=== PATIENT | male | born 1970 | race Caucasian/White ===

== ENCOUNTER 2016-05-19 21:15 | Emergency (ER) | payer OTHER ==
--- NOTE | 2016-05-19 21:26 | PDOC ---
History of Present Illness - History of Present Illness Initial Comments: 05/19/16 21:53 The patient is a 46 year old male with a PMHx of HTN, SD, 3 kidney transplants, anemia, anxiety, depression who presents to the ED sent by PCP for a potassium of 7.1. The patient got lab done today, and PCP called him with results and told him to go to the ED. He has no current symptoms. He denies chest pain, SOB , palpitations. He denies fever, chills, nausea, vomiting. He has a colostomy and urostomy bag. He denies tobacco, alcohol, drug use. PAST MEDICAL HISTORY: HTN, SD, 3 kidney transplants, anemia, anxiety, depression PAST SURGICAL HISTORY: colostomy, urostomy FAMILY HISTORY: no pertinent history SOCIAL HISTORY: Pt lives with family and is employed. MEDICATIONS: reviewed ALLERGIES: As per nursing notes Review of Systems: General: No fevers or chills, no weakness, no weight loss HEENT: No change in vision. No sore throat,. No ear pain CardioVascular: No chest pain or shortness of breath Respiratory: No cough, or wheezing. Gastrointestinal: no nausea, vomiting, diarrhea or constipation, No rectal bleeding Genitourinary: No dysuria, hematuria, or frequency Musculoskeletal: No joint or muscle pain or swelling Neurologic: No headache, vertigo, dizziness or loss of consciousness Psychiatric: No depression Skin: No rashes or easy bruising Endocrine: No increased thirst or abnormal weight change Allergic: No skin or latex allergy All other systems reviewed and normal Physical Exam: General: Well-nourished well-developed individual, no acute distress HEENT: Throat: Normal, tonsils normal, no erythema or exudate Neck: Supple, no meningeal signs, no lymphadenopathy Eyes: Pupils equal reactive and round, extraocular motion intact Chest: Nontender to palpation Cardiac: S1-S2 normal, regular rate and rhythm, no murmurs rubs or gallops Respiratory: Lungs clear to auscultation bilateral Abdomen: Multiple surgical scars with diverting colostomy and urostomy bags. Soft, nondistended, normal bowel sounds, nontender to palpation diffusely Extremities: Warm, dry, no cyanosis, clubbing, or edema Skin: No rashes Neuro: Alert and oriented x3, nonfocal exam, grossly intact, normal gait Psych: Normal mood and affect <Charmaine Mason A - Last Filed: 05/19/16 21:53> - General History Source: Patient Exam Limitations: No Limitations - History of Present Illness Initial Comments: 05/19/16 22:23 A portion of this note was documented by scribe services under my direction. I have reviewed the details of the note, within reason, and agree with the documentation. The case summary and management plan written by me. Assessment and plan: This is a 46-year-old male who comes in complaining of his doctor called him and told him to go to the ER to have his room potassium checked as he had had it done earlier in the day and he came back 7.5. Repeat potassium here in the emergency room was 5.7. EKG was done which is unchanged from prior and shows no changes suggestive of hyperkalemia. Patient is otherwise without complaints. Patient's primary care DrJavi regalado was called and discussed findings with him. He recommends that the patient takes some sodium bicarbonate 1300 mg a day as he is a little acidotic. Patient will follow-up with his doctor in the morning. <Evelia Roblero I - Last Filed: 05/19/16 22:25> - General Stated Complaint: HYPERKALEMIA Time Seen by Provider: 05/19/16 21:25 Past History <Charmaine Mason - Last Filed: 05/19/16 21:53> - Past Medical History Anemia: Yes Cardiac Disorders: Yes (2013) Dialysis: Yes (S/P KIDNEY TRANSPLANT) HTN: Yes Psychiatric Problems: Yes (DEPRESSION, ANXIETY) - Surgical History Abdominal Surgery: Yes (COLOSTOMY) - Immunization History Td Vaccination: No - Psycho/Social/Smoking Cessation Hx Anxiety: Yes Suicidal Ideation: No Smoking Status: No Smoking History: Never smoked Number of Cigarettes Smoked Daily: 0 Hx Alcohol Use: No Drug/Substance Use Hx: No <Evelia Roblero I - Last Filed: 05/19/16 22:25> - Past Medical History Allergies/Adverse Reactions: Allergies Allergy/AdvReac Type Severity Reaction Status Date / Time No Known Allergies Allergy Verified 12/08/14 08:42 Home Medications: Ambulatory Orders Atorvastatin Ca [Lipitor -] 40 mg PO HS 12/08/14 Azathioprine [Azasan] 100 mg PO DAILY 12/08/14 Clopidogrel Bisulfate [Clopidogrel] 75 mg PO DAILY 12/08/14 Prednisone 5 mg PO DAILY 12/08/14 Carvedilol [Coreg] 25 mg PO BID 05/19/16 Escitalopram Oxalate [Lexapro -] 20 mg PO DAILY 05/19/16 Hydralazine HCl [Apresoline -] 25 mg PO BID 05/19/16 *Physical Exam - Vital Signs Last Vital Signs Temp Pulse Resp BP Pulse Ox 97.9 F 57 L 16 151/90 96 05/19/16 21:39 05/19/16 21:39 05/19/16 21:39 05/19/16 21:39 05/19/16 21:39 <Charmaine Mason - Last Filed: 05/19/16 21:53> ED Treatment Course - LABORATORY CBC & Chemistry Diagram: 05/19/16 21:15 05/19/16 21:15 - ADDITIONAL ORDERS Additional order review: 05/19/16 21:15 RBC 3.99 L MCV 98.5 H MCHC 33.3 RDW 18.2 H D MPV 8.4 Neutrophils % 76.2 Lymphocytes % 17.1 Monocytes % 5.3 Eosinophils % 1.0 Basophils % 0.4 <Charmaine Mason - Last Filed: 05/19/16 21:53> - LABORATORY CBC & Chemistry Diagram: 05/19/16 21:15 05/19/16 21:15 <Evelia Roblero I - Last Filed: 05/19/16 22:25> *DC/Admit/Observation/Transfer - Attestations Scribe Attestion: 05/19/16 21:53 Documentation prepared by Charmaine Mason, acting as certified ophthalmic medical technician for Evelia Roblero MD. <Charmaine Mason - Last Filed: 05/19/16 21:53> - Discharge Dispostion Admit: No <Evelia Roblero I - Last Filed: 05/19/16 22:25> Diagnosis at time of Disposition: Hyperkalemia - Discharge Dispostion Disposition: HOME Condition at time of disposition: Stable - Referrals Referrals: STAFF,NOT ON [Primary Care Provider] - - Patient Instructions Additional Instructions: Purchase some [id number]-mptssmy Tums and take 1300 mg a day. Call your doctor in the morning and discuss with him any additional measures that he may want you to take. Return to the emergency department immediately with ANY new, persistent or worsening symptoms. Continue any medications as previously prescribed by your physician. You should follow up with your primary doctor as soon as possible regarding today's emergency department visit. . Please make sure your doctor reviews the results of your emergency evaluation. Thank you for coming to the Emergency Department today for your care. It was a pleasure to see you today. Please note that your evaluation is INCOMPLETE until you follow-up with your doctor.
[2016-05-19 21:43] VITALS: BP 151/90; PULSE 57; TEMP 97.9; BMI 19.5
[2016-05-19 21:48] LABS: BASOPHIL 0.4 % (0-2.0); MCH 32.8 pg (25.7-33.7); MCHC 33.3 g/dl (32.0-35.9); MEAN CELL VOLUME 98.5 fl (80-96); MEAN PLT VOLUME 8.4 fl (7.5-11.1); NEUTROPHILS 76.2 % (42.8-82.8); PLATELET COUNT 220 K/MM3 (134-434); RDW 18.2 % (11.9-15.9); WHITE BLOOD COUNT 5.1 K/mm3 (4.0-10.0)
[2016-05-19 21:57] LABS: ALBUMIN 3.9 g/dl (3.5-5.0); ALK PHOS 78 U/L (32-92); ANION GAP 8 (8-16); BILIRUBIN,TOTAL 0.4 mg/dl (0.2-1.0); CO2 19 mmol/L (22-28); CPK(DFH) 92 IU/L (38-174); CREATININE 3.8 mg/dl (0.6-1.3); GLUCOSE,RANDOM 132 mg/dl (74-106); SGOT/AST 19 U/L (10-42); SGPT/ALT 10 U/L (10-40); TOT PROT 6.6 g/dl (6.4-8.3)
[2016-05-19 22:04] LABS: TROPONIN I (DFP) < 0.03 ng/ml (0.03-0.50)
--- NOTE | 2016-05-20 10:48 | EKG ---
Test Reason : Blood Pressure : / mmHG Vent. Rate : 057 BPM Atrial Rate : 057 BPM P-R Int : 146 ms QRS Dur : 104 ms QT Int : 412 ms P-R-T Axes : 024 -34 150 degrees QTc Int : 401 ms SINUS BRADYCARDIA LEFT AXIS DEVIATION LEFT VENTRICULAR HYPERTROPHY WITH REPOLARIZATION ABNORMALITY CANNOT RULE OUT SEPTAL INFARCT , AGE UNDETERMINED ABNORMAL ECG NO PREVIOUS ECGS AVAILABLE Confirmed by TEVIN RUBIO MD ([id number]) on 05/20/2016 10:48:04 AM Referred By: MD ENICNAS Confirmed By:TEVIN RUBIO MD
== END 2016-05-19 22:41 | disposition home or self-care (01) ==
LOC: FER 21:15
DX: E87.5 Hyperkalemia (principal); I25.2 Old myocardial infarction; I10 Essential (primary) hypertension; F41.8 Other specified anxiety disorders; Z94.0 Kidney transplant status
CPT/HCPCS: 36415; 80053; 82550; 84484; 85025; 93005; 99282-25